=== PATIENT | female | born 1940 | race Caucasian/White ===

== ENCOUNTER 2023-07-13 13:03 | Emergency (ER) | payer MEDICARE, OTHER, SELFPAY ==
[2023-07-13 13:07] VITALS: BP 183/92
[2023-07-13 13:32] VITALS: BMI 27.7
[2023-07-13 13:49] LABS: % Basophils 1.1 % (0-2); % Eosinophils 1.5 % (0-6); % Immature Granulocytes 0.3 % (0-0.5); % Lymphocytes 37.3 % (20.5-51.1); % Monocytes 8.7 % (1.7-9.3); % Neutrophils 51.1 % (42.2-75.2); Absolute Basophils 0.1 10^3/uL (0-0.2); Absolute Eosinophils 0.1 10^3/uL (0-0.7); Absolute Lymphocytes 2.3 10^3/uL (1.2-3.4); Absolute Monocytes 0.5 10^3/uL (0.1-0.6); Absolute Neutrophils 3.2 10^3/uL (1.4-6.5); Hematocrit 38.8 % (37.0-47.0); Mean Corp Hgb Conc. 33.5 g/dL (33.0-37.0); Mean Corpuscular Hgb 32.2 pg (27.0-31.0); Mean Platelet Volume 10.4 fL (7.4-10.4); Nucleated Red Blood Cells % 0 %; Platelet Count 232 10^3/uL (130-400); Red Blood Cell Count 4.04 10^6/uL (4.20-5.40); White Blood Cell Count 6.2 10^3/uL (4.8-10.8)
[2023-07-13 14:02] LABS: ALT (SGPT) 23 U/L (0-35); AST (SGOT) 35 U/L (14-36); Albumin 4.4 g/dl (3.5-5.0); Alkaline Phosphatase 74 U/L (38-126); Blood Urea Nitrogen 17 mg/dl (7-17); Calcium 9.3 mg/dl (8.4-10.2); Carbon Dioxide 30 mmol/L (22-30); Chloride 101 mmol/L (98-107); Estimated Creatinine Clearance 71 ml/min; Glucose 100 mg/dl (70-99); Potassium 4.4 mmol/L (3.5-5.1); Sodium 134 mmol/L (135-145); Total Bilirubin 0.7 mg/dl (0.2-1.3); Total Protein 7.7 g/dl (6.3-8.2); eGFR > 60.00
[2023-07-13 14:15] LABS: Troponin I < 0.012 ng/ml
--- NOTE | 2023-07-13 15:27 | ED.GENMED ---
History of Present Illness
General
Chief Complaint: Chest Pain
Time Seen by Provider: 07/13/23 13:33
Travel History
Have you had any contact with someone who has COVID-19?: No
Do you have any symptoms of coronavirus? Fever > 100 degrees, chills, cough, shortness of breath, sore throat, loss of taste or smell, muscle aches, or headache?: No
History of Present Illness
History of Present Illness:
82-year-old female with history of hypertension presents the emergency department for evaluation of a brief episode of central chest pain that occurred at approximately noon today. Pain lasted 5 minutes or less, has not had any recurrent symptoms.
Denies any exertional component to the symptoms or positional nature. Pain was not pleuritic. Denies any associated fever, chills, sweats, nausea, vomiting, or diarrhea. She does note that she has had nontraumatic left jaw pain intermittently
over the past month, saw her dentist on Monday with no identified dental problems. Denies any exertional jaw pain or jaw claudication
Past History
Past History
ED Past Medical History: Other (Anemic, Arthritis)
ED Past Surgical History: None
Social History
Tobacco: Former smoker
Alcohol: Occasional
Personal:
Living: with family
Review of Systems
Review of Systems
Allergies reviewed?: Yes
All Other Systems: ROS reviewed and negative except as documented in HPI and ROS
Phy Exam
Physical Exam
Physical Exam:
GEN: Well appearing, NAD, WDWN
HEENT: Oral mucosa moist, no scleral icterus, no temporal artery tenderness or enlargement palpated bilaterally
Cardiac: Regular rate and rhythm, no murmurs or rubs
Lung: No respiratory distress, no tachypnea, lungs clear to auscultation
MSK: No gross deformity or injuries
Skin: Good color, no pallor or jaundice, no rashes
Neuro: AO x3, moves all extremities freely
Psych: Calm, cooperative
Scores
Heart Score for Chest Pain Patients
STEMI patient?: No
History: Slightly or Non-Suspicious
ECG: Normal
Age: >/= 65 years
Risk Factors: 1 or 2 Risk Factors
Troponin: </= Normal Limit
Heart Score for Chest Pain Patients: 3
Heart Score Risk: 2.5% MACE over next 6 weeks
Course
Orders/Labs/Results
Orders:
Orders
07/13/23 13:10
Electrocardiogram (*1) Stat
Reason for Study: Chest Pain
07/13/23 13:11
EKG- Treatment ONCE
07/13/23 13:37
IV Insert/Care/Rem.- Treatment PRN
07/13/23 13:40
Complete Blood Count/With Diff Urgent
Comprehensive Metabolic Panel Urgent
Troponin I Urgent
07/13/23 13:53
CR Chest - 2 Views Urgent
Comment:
Reason For Exam: chest pain
Abnormal Lab Results
07/13/23
13:40
RBC 4.04 L 10^6/uL
(4.20-5.40)
MCH 32.2 H pg
(27.0-31.0)
Sodium 134 L mmol/L
(135-145)
Creatinine 0.5 L mg/dL
(0.6-1.0)
Glucose 100 H mg/dl
(70-99)
07/13/23 13:40
07/13/23 13:40
Vital Signs
Initial and Last Documented VS:
Initial Vital Signs
Temp Pulse Resp BP Pulse Ox
97.2 F 72 16 183/92 98
07/13/23 13:07 07/13/23 13:07 07/13/23 13:07 07/13/23 13:07 07/13/23 13:07
Last Documented Vital Signs
Temp Pulse Resp BP Pulse Ox
97.2 F 70 22 183/92 97
07/13/23 13:07 07/13/23 15:34 07/13/23 15:34 07/13/23 13:07 07/13/23 15:34
MDM/Problems Addressed
MDM/Problems Addressed:
EKG independently interpreted by me shows normal sinus rhythm at a rate of [address] changes concerning for ischemia
Patient with no further chest pain in the emergency department. 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 Lack of tachycardia or hypoxia reassuring against pulmonary embolism. The patient does have associated jaw pain
however this did not present itself in conjunction with the chest pain, she has no exertional symptoms. Nevertheless given the associated vague jaw pain that has been deemed nondental by her dentist will refer to cardiology as an outpatient
*Critical Care Note
Total Time (30-74mins, 75-104mins- exclusive of procedures): Not Applicable
ED Attending Note
-
Portions of this chart may have been created with voice recognition software.� Occasional wrong word or��sound alike� substitutions may have occurred due to the inherent limitations of voice recognition software.
Discharge Plan
Departure
Patient Disposition: Home (Routine Discharge)
Date of Disposition: 07/13/23
Time of Disposition: 15:27
Patient with high blood pressure during this ER visit?: Yes
Discharge Problem:
Chest pain
Instructions: Chest Pain DCA Follow Up
Referrals:
Angelita Vee MD [Family Provider] -
Interventions
Interventions:
*Risk Screen - Suicide Last Done: 07/13/23 13:32
*General Assessment Last Done: 07/13/23 13:32
*Neglect/Abuse Screening Last Done: 07/13/23 13:32
ED- Fall Risk Assessment Last Done: 07/13/23 13:32
*ED COVID-19 Vaccine History Last Done: 07/13/23 13:07
*Nursing Disposition Last Done: 07/13/23 15:35
ED- Cardiac Assessment Last Done: 07/13/23 13:32
Discharge Date and Time
Discharge Date/Time: 07/13/23 15:35
== END 2023-07-13 15:35 | disposition home or self-care (01) ==
LOC: EMR 13:03
PROVIDERS: Physician Assistant; EMERGENCY PHYSICIAN Student in an Organized Health Care Education/Training Program; FAMILY PHYSICIAN Family Medicine
DX: R07.9 Chest pain, unspecified (principal); R68.84 Jaw pain
CPT/HCPCS: 99285; 71046; 80053; 84484; 85025; 93005

== ENCOUNTER → 2023-08-16 11:44 | Outpatient (REF) | payer MEDICARE, OTHER, SELFPAY | LOC: HWRAD 11:44 | PROVIDERS: ATTENDING PHYSICIAN Physician Assistant; FAMILY PHYSICIAN Family Medicine | DX: M25.561 Pain in right knee (principal); M25.562 Pain in left knee | CPT/HCPCS: 73560; 73565 ==

== ENCOUNTER → 2023-09-07 11:31 | Outpatient (REF) | payer MEDICARE, OTHER, SELFPAY | LOC: DHCBC/DCA 11:31 | PROVIDERS: ATTENDING PHYSICIAN Internal Medicine Cardiovascular Disease | DX: R07.89 Other chest pain (principal) | CPT/HCPCS: 78452; 93017; A9500; J2785 ==

== ENCOUNTER → 2024-09-06 11:29 | Outpatient (REF) | payer MEDICARE, OTHER, SELFPAY | LOC: HWRAD 11:29 | PROVIDERS: ATTENDING PHYSICIAN Internal Medicine Rheumatology; FAMILY PHYSICIAN Family Medicine | DX: M81.0 Age-related osteoporosis without current pathological fracture (principal) | CPT/HCPCS: 77080 ==

== ENCOUNTER 2024-09-18 06:17 | Day surgery (SDC) | payer MEDICARE, OTHER, SELFPAY | END 2024-09-18 09:30 | disposition home or self-care (01) | LOC: GI 06:17 | PROVIDERS: ATTENDING PHYSICIAN Surgery; FAMILY PHYSICIAN Family Medicine | DX: Z12.11 Encounter for screening for malignant neoplasm of colon (principal); K62.5 Hemorrhage of anus and rectum; Z80.0 Family history of malignant neoplasm of digestive organs; K57.30 Diverticulosis of large intestine without perforation or abscess without bleeding; K64.9 Unspecified hemorrhoids | CPT/HCPCS: G0105 ==

== ENCOUNTER 2025-01-18 15:27 | Emergency (ER) | payer MEDICARE, OTHER, SELFPAY ==
[2025-01-18 15:47] VITALS: BP 175/84
[2025-01-18 16:21] LABS: Hematocrit 36.1 % (37.0-47.0); Hemoglobin 12.4 g/dL (12.0-16.0); Mean Corp Hgb Conc. 34.3 g/dL (33.0-37.0); Mean Corpuscular Volume 90.5 fL (81.0-99.0); Nucleated Red Blood Cells % 0 %; Platelet Count 266 10^3/uL (130-400); Red Cell Dist. Width 12.6 % (11.5-14.5)
[2025-01-18 16:31] LABS: ALT (SGPT) 17 U/L (0-35); AST (SGOT) 29 U/L (14-36); Albumin 4.5 g/dl (3.5-5.0); Alkaline Phosphatase 67 U/L (38-126); Blood Urea Nitrogen 15 mg/dl (7-17); Calcium 9.5 mg/dl (8.4-10.2); Carbon Dioxide 27 mmol/L (22-30); Chloride 99 mmol/L (98-107); Glucose 94 mg/dl (70-99); Potassium 4.9 mmol/L (3.5-5.1); Sodium 132 mmol/L (135-145); Total Protein 7.8 g/dl (6.3-8.2); eGFR > 60.00
--- NOTE | 2025-01-18 19:18 | ED.GENMED ---
History of Present Illness
General
Chief Complaint: Cough
Source: patient
Exam Limitations: none
Time Seen by Provider: 01/18/25 19:03
History of Present Illness
History of Present Illness:
84yoF with a history of hypertension and COPD presenting with her for evaluation of a cough. Patient started with URI symptoms about 2 weeks ago with sinus pressure, congestion, and cough. She was seen by her PCP and was started on a Z-Estevan
which she completed yesterday. Symptoms are persistent and she reports a rattling in her chest. Her cough was initially productive of yellow and greenish sputum. She started to notice blood mixed in with the sputum earlier today. She states she
can taste the blood before she coughs it up and believes there may be something bleeding in the back of her throat from coughing so much. Her PCP did send in a second antibiotic today as well as a cough syrup which she has not picked up from the
pharmacy yet. She denies any fevers. She does report some exertional dyspnea which has been ongoing prior to her URI symptoms starting. Her only blood thinner is a baby aspirin.
Past History
Past History
ED Past Medical History: Other (Anemic, Arthritis)
ED Past Surgical History: None
Social History
Tobacco: Former smoker
Alcohol: Occasional
Personal:
Living: with family
Phy Exam
General Physical Exam
General Presentation: well appearing and no apparent distress
General Skin: warm and dry
General Habitus: normal
General Mental: alert
ENT Exam
ENT Exam: pharynx normal, neck supple, normocephalic and other (No bleeding noted in posterior oropharynx. Cerumen noted in bilateral ear canals. )
Cardiovascular Exam
Cardiovascular Exam: regular rate/rhythm
Pulmonary Exam
Pulmonary Exam: lungs clear, no respiratory distress, no rales, no crackles, no rhonchi and no wheezing
Neurological Exam
Neurological Exam: alert
Sylvia Coma Scale
Eye Opening: Spontaneous
Verbal Response: Oriented
Motor Response: Obeys Commands
GCS Total Score: 15
Skin Exam
Skin Exam: normal color and warm/dry
Psychiatric Exam
Psychiatric Exam: normal mood/affect
Course
Orders/Labs/Results
Orders:
Orders
01/18/25 15:50
Chest [CR Chest - 2 Views ] Urgent
Comment:
Reason For Exam: cough
01/18/25 15:53
Complete Blood Count/With Diff Urgent
Comprehensive Metabolic Panel Urgent
01/18/25 19:17
CT Chest PE Study Urgent
Comment:
Reason For Exam: hemoptysis
01/18/25 21:56
Cefdinir [Omnicef] 300 mg PO NOW STA
Abnormal Lab Results
01/18/25
15:53
RBC 3.99 L 10^6/uL
(4.20-5.40)
Hct 36.1 L %
(37.0-47.0)
MCH 31.1 H pg
(27.0-31.0)
Absolute Monos (auto) 0.7 H 10^3/uL
(0.1-0.6)
Sodium 132 L mmol/L
(135-145)
01/18/25 15:53
01/18/25 15:53
Vital Signs
Initial and Last Documented VS:
Initial Vital Signs
Temp Pulse Resp BP Pulse Ox
97.8 F 75 19 175/84 98
01/18/25 15:47 01/18/25 15:47 01/18/25 15:47 01/18/25 15:47 01/18/25 15:47
Last Documented Vital Signs
Temp Pulse Resp BP Pulse Ox
97.8 F 75 18 160/67 97
01/18/25 15:47 01/18/25 21:52 01/18/25 21:52 01/18/25 21:52 01/18/25 21:52
MDM/Problems Addressed
Differential Diagnosis Includes:
84yoF here with hemoptysis. Sick for 2 weeks with sinus pressure/cough. Started to notice blood in sputum today. No fevers. She is hypertensive with otherwise stable vitals. She is well-appearing in no acute distress. Exam reassuring and no blood
noted in posterior oropharynx. Differential diagnosis includes but is not limited to: bronchitis, pneumonia, oropharyngeal bleeding, less likely PE/malignancy
Initial ED plan: Workup initiated in triage and labs unremarkable including normal white count and hemoglobin. Chest x-ray negative for acute findings. Will proceed with CTA chest.
*Pulse Oximetry
SaO2: 98
Oxygen Mode of Delivery: Room air
Patient hypoxic: no (97%)
*Critical Care Note
Total Time (30-74mins, 75-104mins- exclusive of procedures): Not Applicable
Update Note
Update Note:
CT shows R lower lobe opacity suggestive of pneumonia. No pulmonary embolism. Patient had one episode of hemoptysis while in ED that appeared to be about a tablespoon of dark red blood. She subsequently coughed several times and sputum was yellow.
Discussed case with developer relations manager museum technician, Dr. Faith, who reviewed imaging. Patient may be discharged with cefdinir vs. Levaquin if stable per pulmonology. Vitals remain stable and she denies any dyspnea on reassessment. Patient comfortable with
discharge. Prescription for cefdinir sent to pharmacy. Pulmonary clinic will call patient next week for close f/u. Strict ED return precautions reviewed.
ED Attending Note
-
Portions of this chart may have been created with voice recognition software.� Occasional wrong word or��sound alike� substitutions may have occurred due to the inherent limitations of voice recognition software.
Discharge Plan
Departure
Patient Disposition: Home (Routine Discharge)
Date of Disposition: 01/18/25
Time of Disposition: 21:48
Patient with high blood pressure during this ER visit?: Yes
Discharge Problem:
Right lower lobe pneumonia, Hemoptysis
Instructions: Pneumonia, Adult (DC)
Prescriptions:
New
cefdinir 300 mg capsule
300 mg PO BID Qty: 14 0RF
Referrals:
Danilo Faith MD [Active, Pulmonary Medicine]
Angelita Vee MD [Family Provider]
Activity Restrictions/Additional Instructions:
Take cefdinir (antibiotics) as prescribed.
Please call on Monday to schedule a follow-up with your family doctor and pulmonology. Return to the ER immediately with any worsening symptoms including worsening bleeding or shortness of breath.
Interventions
Interventions:
*Risk Screen - Suicide Last Done: 01/18/25 15:47
*General Assessment Last Done: 01/18/25 15:47
*Neglect/Abuse Screening Last Done: 01/18/25 15:47
*Nursing Disposition Last Done: 01/18/25 22:06
ED- Pulmonary Assessment Last Done: 01/18/25 19:30
Discharge Date and Time
Discharge Date/Time: 01/18/25 22:06
Print Language: BULGARIAN
[2025-01-18 20:30] VITALS: BP 182/67
[2025-01-18 21:52] VITALS: BP 160/67
[2025-01-18] MEDS: OMNICEF 300 MG PO (22:03)
== END 2025-01-18 22:06 | disposition home or self-care (01) ==
LOC: EMR 15:27
PROVIDERS: EMERGENCY PHYSICIAN Emergency Medicine; FAMILY PHYSICIAN Family Medicine
DX: J44.0 Chronic obstructive pulmonary disease with (acute) lower respiratory infection (principal); J18.9 Pneumonia, unspecified organism; I10 Essential (primary) hypertension; Z87.891 Personal history of nicotine dependence
CPT/HCPCS: 99284; 71046; 71275; 80053; 85025; Q9967

== ENCOUNTER → 2025-02-10 10:06 | Outpatient (REF) | payer MEDICARE, OTHER, SELFPAY | LOC: HWRAD 10:06 | PROVIDERS: ATTENDING PHYSICIAN Internal Medicine; REFERRING PHYSICIAN Internal Medicine Pulmonary Disease | DX: J18.9 Pneumonia, unspecified organism (principal) | CPT/HCPCS: 71046 ==

== ENCOUNTER → 2025-04-17 11:01 | Outpatient (REF) | payer MEDICARE, OTHER, SELFPAY | LOC: HWWDC 11:01 | PROVIDERS: ATTENDING PHYSICIAN Internal Medicine | DX: Z12.31 Encounter for screening mammogram for malignant neoplasm of breast (principal) | CPT/HCPCS: 77063; 77067 ==